=== PATIENT | female | born 1970 | race Caucasian/White ===

== ENCOUNTER 2022-03-03 14:21 | Outpatient (CLI) | payer BC | END 2022-03-03 14:22 | disposition home or self-care (01) | LOC: MADRAD 14:21 | PROVIDERS: ATTEND Physician Assistant | DX: R20.2 Paresthesia of skin (principal); M47.816 Spondylosis without myelopathy or radiculopathy, lumbar region | CPT/HCPCS: 72100 ==

== ENCOUNTER 2022-08-24 10:10 | Outpatient (CLI) | payer BC | END 2022-08-24 10:11 | disposition home or self-care (01) | LOC: MADULT 10:10 | PROVIDERS: ATTEND Physician Assistant | DX: R22.41 Localized swelling, mass and lump, right lower limb (principal); M67.471 Ganglion, right ankle and foot | CPT/HCPCS: 76999 ==